=== PATIENT | female | born 1965 | race Caucasian/White ===

== ENCOUNTER → 2024-07-04 10:10 | Outpatient (REF) | payer OTHER, SELFPAY | LOC: WDC 10:10 | PROVIDERS: ATTENDING PHYSICIAN Physician Assistant Medical | DX: Z12.31 Encounter for screening mammogram for malignant neoplasm of breast (principal); Z78.0 Asymptomatic menopausal state; M85.80 Other specified disorders of bone density and structure, unspecified site; Z20.828 Contact with and (suspected) exposure to other viral communicable diseases | CPT/HCPCS: 77063; 77067; 77080 ==

== ENCOUNTER → 2024-07-25 15:40 | Outpatient (REF) | payer OTHER, SELFPAY | LOC: REG 15:40 | PROVIDERS: ATTENDING PHYSICIAN Podiatrist; FAMILY PHYSICIAN Physician Assistant Medical | DX: Q66.51 Congenital pes planus, right foot (principal); Q66.52 Congenital pes planus, left foot | CPT/HCPCS: 73630 ==